=== PATIENT | female | born 1985 | race Caucasian/White ===

== ENCOUNTER 2017-10-09 20:17 | Emergency (ER) | payer SELFPAY ==
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
[2017-10-09] MEDS ORDERED: Ketorolac 60 MG/2 ML SDV IM ONE (20:53)
[2017-10-09] MEDS ORDERED: Acetaminophen/HYDROcodone 325-10 MG Tab PO ONE (21:56)
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
== END 2017-10-09 22:58 | disposition home or self-care (01) ==
LOC: MW.ED 20:17
DX: F07.81 Postconcussional syndrome (principal); Y08.89XA Assault by other specified means, initial encounter
CPT/HCPCS: 70450; 96372; 99283; A9270; J1885